=== PATIENT | female | born 1990 | race Caucasian/White ===

== ENCOUNTER 2016-12-21 12:47 | Emergency (ER) | payer BC ==
[~2016-12-21] VITALS: Ht 160 cm; Wt 59.0 kg
[~2016-12-21 12:47] MED LIST: KEFLEX500 MG PO; NAPROSYN500 MG PO
[2016-12-21 12:52] VITALS: BP 130/77
[2016-12-21 13:24] LABS: URINE BILIRUBIN NEGATIVE (Negative); URINE BLOOD NEGATIVE (Negative); URINE COLOR YELLOW; URINE GLUCOSE-RANDOM* NEGATIVE (Negative); URINE KETONES NEGATIVE (Negative); URINE NITRITE NEGATIVE (Negative); URINE PROTEIN (DIPSTICK) NEGATIVE (Negative); URINE UROBILINOGEN 0.2 E.U./dl (0.2-1.0)
[2016-12-21 13:25] LABS: HEMATOCRIT 37.9 % (37.0-47.0); HEMOGLOBIN 12.4 gm/dL (12.0-15.0); MCH 26.5 pg (26.0-34.0); MCHC 32.8 g/dL (28.0-37.0); MCV 80.8 fL (80.0-100.0); RBC 4.69 mil/uL (4.20-5.00); RDW 14.9 % (10.5-14.5); WBC 4.1 thou/uL (4.0-11.0)
[2016-12-21 13:33] LABS: CALCIUM 9.2 mg/dL (8.5-10.1); CREATININE 0.8 mg/dL (0.6-1.0); POTASSIUM 3.7 mmol/L (3.5-5.1)
[2016-12-21 13:38] LABS: ALBUMIN 4.3 g/dL (3.4-5.0); TOTAL BILIRUBIN 0.2 mg/dL (<0.1-1.0); TOTAL PROTEIN 8.3 g/dL (6.4-8.2)
== END 2016-12-21 14:11 ==
LOC: ER 12:47
PROVIDERS: Physician Assistant
DX: R51 Headache (principal); F41.9 Anxiety disorder, unspecified; R35.0 Frequency of micturition

== ENCOUNTER 2018-07-22 16:04 | Emergency (ER) | payer OTHER ==
[~2018-07-22] VITALS: Ht 152.4 cm; Wt 52.2 kg
[2018-07-22 17:08] VITALS: BP 97/62
== END 2018-07-22 17:28 | disposition home or self-care (01) ==
LOC: ER 16:04
DX: J06.9 Acute upper respiratory infection, unspecified (principal)

== ENCOUNTER 2018-08-06 10:48 | Emergency (ER) | payer BC, OTHER ==
[~2018-08-06] VITALS: Ht 152.4 cm; Wt 53.5 kg
[2018-08-06] MEDS ORDERED: MOBIC7.5 MG PO (11:21)
[2018-08-06] MEDS ORDERED: KEFLEX500 M1 PO (11:21)
[2018-08-06 12:39] VITALS: BP 115/70
== END 2018-08-06 13:07 | disposition home or self-care (01) ==
LOC: ER 10:48
DX: S61.303A Unspecified open wound of left middle finger with damage to nail, initial encounter (principal); S60.132A Contusion of left middle finger with damage to nail, initial encounter; W23.0XXA Caught, crushed, jammed, or pinched between moving objects, initial encounter; Y93.89 Activity, other specified; Y92.89 Other specified places as the place of occurrence of the external cause; Y99.8 Other external cause status

== ENCOUNTER → 2020-07-11 | Emergency (ER) | payer OTHER ==
[~2020-07-11] VITALS: Ht 152.4 cm; Wt 57.6 kg
[~2020-07-11] MED LIST changes: +KEFLEX500 M1 PO; +LITTLE REMEDIE118 M1; +MOBIC7.5 MG PO
[2020-07-11 06:08] VITALS: BP 135/81
[2020-07-11 07:19] LABS: ABSOLUTE NEUTROPHILS 1.5 thou/uL (1.4-8.2); BASOPHILS 0.3 % (0.0-2.0); HEMATOCRIT 37.2 % (37.0-47.0); HEMOGLOBIN 12.5 gm/dL (12.0-15.0); LYMPHOCYTES 49.3 % (24.0-44.0); MCH 29.1 pg (26.0-34.0); MCHC 33.7 g/dL (28.0-37.0); MCV 86.5 fL (80.0-100.0); MONOCYTES 10.6 % (1.0-8.0); PLATELET COUNT 212 thou/uL (150-400); POLYS 37.8 % (36.0-66.0); RBC 4.31 mil/uL (4.20-5.00); RDW 12.3 % (10.5-14.5)
[2020-07-11 07:38] LABS: ANION GAP 11 mmol/L (7-16); BUN 11 mg/dL (7-18); CALCIUM 9.7 mg/dL (8.5-10.1); CHLORIDE 103 mmol/L (98-107); CO2 26 mmol/L (21-32); CREATININE 0.8 mg/dL (0.6-1.0); GLUCOSE 98 mg/dL (74-106); POTASSIUM 3.4 mmol/L (3.5-5.1); SODIUM 140 mmol/L (136-145)
[2020-07-11 07:39] LABS: TROPONIN-I <0.06 ng/mL (<0.06)
--- NOTE | 2020-07-12 07:22 | EKG ---
[facility] [address] [place] [address] ELECTROCARDIOGRAM REPORT Name: DENILSON LARIOS Room #: YULIANA Shultz#: [id number] Admission: 07/11/20 Attend Phys: Discharge: Date of : 88 Report #: [id number] <ELECTRONICALLY SIGNED> By: Max Osullivan MD, FACC 07/12/20 0722 Max Osullivan MD, FACC /EPI
== END ==
LOC: ER 06:04
PROVIDERS: Emergency Medicine
DX: U07.1 COVID-19 (principal); E05.90 Thyrotoxicosis, unspecified without thyrotoxic crisis or storm; R00.2 Palpitations; R00.0 Tachycardia, unspecified; R42 Dizziness and giddiness

== ENCOUNTER 2020-09-27 10:17 | Emergency (ER) | payer OTHER ==
[~2020-09-27] VITALS: Ht 152.4 cm; Wt 56.7 kg
[2020-09-27 10:20] VITALS: BP 113/80
[2020-09-27 10:37] LABS: URINE BILIRUBIN NEGATIVE (Negative); URINE BLOOD 3+ (Negative); URINE CLARITY SL CLOUDY; URINE COLOR YELLOW; URINE GLUCOSE-RANDOM* NEGATIVE (Negative); URINE KETONES NEGATIVE (Negative); URINE LEUKOCYTES-REFLEX NEGATIVE (Negative); URINE NITRITE-REFLEX NEGATIVE (Negative); URINE PROTEIN (DIPSTICK) TRACE (Negative); URINE SPECIFIC GRAVITY 1.025 (1.005-1.035); URINE UROBILINOGEN 0.2 E.U./dl (0.2-1.0)
[2020-09-27 11:19] LABS: SQUAMOUS >10 Many /LPF (0-3)
[2020-09-27 11:28] LABS: MUCUS 4-6 Moderate strn/LPF (None Seen)
[2020-09-27 11:29] LABS: CASTS None Seen /LPF (None Seen); CRYSTALS None Seen /LPF (None Seen)
[2020-09-27 11:30] LABS: BACTERIA-REFLEX 1-9 Few /HPF (None Seen); URINE WBC-REFLEX 0-5 Rare /HPF (0-5)
[2020-09-27 11:31] LABS: YEAST-REFLEX Present (None Seen)
== END 2020-09-27 11:10 | disposition home or self-care (01) ==
LOC: ER 10:17
PROVIDERS: Emergency Medicine
DX: N93.8 Other specified abnormal uterine and vaginal bleeding (principal); R42 Dizziness and giddiness; Z53.21 Procedure and treatment not carried out due to patient leaving prior to being seen by health care provider

== ENCOUNTER 2020-12-13 17:02 | Emergency (ER) | payer OTHER ==
[~2020-12-13] VITALS: Ht 152.4 cm; Wt 53.5 kg
[2020-12-13 18:50] LABS: ABSOLUTE NEUTROPHILS 1.5 thou/uL (1.4-8.2); BASOPHILS 0.4 % (0.0-2.0); EOSINOPHILS 1.1 % (0.0-3.0); HEMATOCRIT 39.2 % (37.0-47.0); HEMOGLOBIN 13.1 gm/dL (12.0-15.0); MCH 29.4 pg (26.0-34.0); MCHC 33.4 g/dL (28.0-37.0); MCV 88.1 fL (80.0-100.0); MONOCYTES 9.3 % (1.0-8.0); PLATELET COUNT 170 thou/uL (150-400); POLYS 39.2 % (36.0-66.0); RBC 4.45 mil/uL (4.20-5.00); WBC 3.8 thou/uL (4.0-11.0)
[2020-12-13 18:59] LABS: ANION GAP 10 mmol/L (7-16); BUN 11 mg/dL (7-18); CALCIUM 9.7 mg/dL (8.5-10.1); CHLORIDE 100 mmol/L (98-107); CO2 29 mmol/L (21-32); CREATININE 0.8 mg/dL (0.6-1.0); GLUCOSE 93 mg/dL (74-106); POTASSIUM 3.1 mmol/L (3.5-5.1); SODIUM 139 mmol/L (136-145)
[2020-12-13 19:09] LABS: ALBUMIN 4.4 g/dL (3.4-5.0); SGOT 17 U/L (15-37); SGPT 20 U/L (14-59); TOTAL BILIRUBIN 0.3 mg/dL (0.2-1.0); TOTAL PROTEIN 8.6 g/dL (6.4-8.2); TROPONIN-I <0.06 ng/mL (<0.06)
[2020-12-13] MEDS ORDERED: POTASSIUM20 PO (20:19)
[2020-12-13 20:23] VITALS: BP 127/69
--- NOTE | 2020-12-14 13:04 | EKG ---
[place] [address] [facility] [place] [address] ELECTROCARDIOGRAM REPORT Name: DENILSON LARIOS Room #: DEP LISA Shultz#: [id number] Admission: 12/13/20 Attend Phys: Discharge: 12/13/20 Date of : 88 Report #: [id number] [facility] ED Test Date: 2020-12-13 Test Time: 17:25:15 Pat Name: DENILSON LARIOS Department: Room: Gender: F Can Capper: DOLORES : 1990 Requested By: Josh Sultana Order Number: [id number] MD: Bud Ruano Measurements Intervals [place] Rate: 104 P: 68 W[place]: 134 QRS: 25 QRSD: 93 T: -8 QT: 335 QTc: 441 Interpretive Statements Sinus tachycardia Compared to ECG 07/11/2020 06:45:24 Right ventricular hypertrophy now present Electronically Signed On 12-14-2020 13:04:10 CDT by Bud Ruano [email or web address] <ELECTRONICALLY SIGNED> By: Bud Ruano MD 12/14/20 1304 1725 1725 MD LYNNE Blancas
== END 2020-12-13 20:32 | disposition home or self-care (01) ==
LOC: ER 17:02
PROVIDERS: Emergency Medicine
DX: R00.2 Palpitations (principal); E87.6 Hypokalemia; R42 Dizziness and giddiness

== ENCOUNTER 2021-08-03 23:19 | Emergency (ER) | payer OTHER ==
[~2021-08-03] VITALS: Ht 152.4 cm; Wt 53.1 kg
[~2021-08-03 23:19] MED LIST changes: +POTASSIUM20 PO
[2021-08-04 03:31] VITALS: BP 130/60
== END 2021-08-04 01:00 | disposition home or self-care (01) ==
LOC: ER 23:19
DX: R06.02 Shortness of breath (principal); R00.2 Palpitations; Z86.16 Personal history of COVID-19; Z98.890 Other specified postprocedural states; Z53.21 Procedure and treatment not carried out due to patient leaving prior to being seen by health care provider

== ENCOUNTER 2021-08-28 19:13 | Emergency (ER) | payer OTHER ==
[~2021-08-28] VITALS: Ht 152.4 cm; Wt 52.2 kg
[2021-08-28 20:17] LABS: URINE BILIRUBIN NEGATIVE (Negative); URINE BLOOD NEGATIVE (Negative); URINE CLARITY CLEAR; URINE COLOR YELLOW; URINE GLUCOSE-RANDOM* NEGATIVE (Negative); URINE KETONES NEGATIVE (Negative); URINE LEUKOCYTES-REFLEX NEGATIVE (Negative); URINE NITRITE-REFLEX NEGATIVE (Negative); URINE PROTEIN (DIPSTICK) NEGATIVE (Negative); URINE SPECIFIC GRAVITY 1.025 (1.005-1.035); URINE UROBILINOGEN 0.2 E.U./dl (0.2-1.0)
[2021-08-28 21:12] VITALS: BP 108/68
--- NOTE | 2021-08-29 07:33 | EKG ---
[place] [address] [place] [address] ELECTROCARDIOGRAM REPORT Name: DENILSON LARIOS Room #: DEP Carrington#: [id number] Admission: 08/28/21 Attend Phys: Discharge: 08/28/21 Date of : 88 Report #: [id number] [facility] ED Test Date: 2021-08-28 Test Time: 19:23:57 Pat Name: DENILSON LARIOS Department: Room: Gender: F Manager Safe: ALY : 1990 Requested By: Ruba Paiz Order Number: [id number] MD: Max Osullivan Measurements Intervals [place] Rate: 70 P: 53 NC: 143 QRS: 56 QRSD: 93 T: 51 QT: 386 QTc: 417 Interpretive Statements Sinus rhythm RSR' in V1 or V2, probably normal variant Compared to ECG 12/13/2020 17:25:15 RSR' in V1 or V2 now present Sinus tachycardia no longer present Electronically Signed On 08-29-2021 7:33:27 [employer] by Max Osullivan [email or web address] <ELECTRONICALLY SIGNED> By: Max Osullivan MD, [facility] 08/29/21 0733 22 22 Max Osullivan MD, [facility] /EPI
== END 2021-08-28 21:12 | disposition home or self-care (01) ==
LOC: ER 19:13
PROVIDERS: Physician Assistant
DX: R42 Dizziness and giddiness (principal); Z20.822 Contact with and (suspected) exposure to COVID-19